=== PATIENT | female | born 1995 ===

== ENCOUNTER 2016-11-06 21:38 | Emergency (ER) | payer OTHER ==
[2016-11-06 21:38] VITALS: BMI 18.3
[2016-11-06 21:50] VITALS: PULSE 84
--- NOTE | 2016-11-06 22:11 | C.PDOC ---
History Of Present Illness Pt drank 4 margaritas and beer and now feels nauseated and has some abdominal pain. No f/c. tolerating po. Dull aching discomfort Time Seen by Provider: 11/06/16 22:11 Chief Complaint (Nursing): GI Problem History Per: Patient History/Exam Limitations: no limitations Onset/Duration Of Symptoms: Hrs Current Symptoms Are (Timing): Still Present Context: Food, Other (alcohol) Severity: Moderate Pain Scale Rating Of: 4 Location Of Pain/Discomfort: Epigastric Radiation Of Pain To:: None Quality Of Discomfort: Dull, Cramping Associated Symptoms: Nausea, Vomiting. denies: Fever, Chills Exacerbating Factors: Food Alleviating Factors: None Last Bowel Movement: Today Recent travel outside of the [place]: No Additional History Per: Patient Abnormal Vaginal Bleeding: No Past Medical History Reviewed: Historical Data, Nursing Documentation, Vital Signs Vital Signs: Last Vital Signs Temp 98.1 F 11/06/16 23:27 Pulse 84 11/06/16 23:27 Resp 18 11/06/16 23:27 BP 100/65 11/06/16 23:27 Pulse Ox 100 11/06/16 23:27 - Medical History PMH: Denies: Chronic Kidney Disease Family History: States: No Known Family Hx - Social History Hx Tobacco Use: No Hx Alcohol Use: Yes Hx Substance Use: No - Immunization History Hx Tetanus Toxoid Vaccination: No Hx Influenza Vaccination: No Hx Pneumococcal Vaccination: No Review Of Systems Constitutional: Negative for: Fever, Chills Eyes: Negative for: Redness ENT: Negative for: Throat Pain Cardiovascular: Negative for: Chest Pain, Palpitations Respiratory: Negative for: Shortness of Breath Gastrointestinal: Positive for: Abdominal Pain. Negative for: Nausea, Vomiting Genitourinary: Negative for: Dysuria Musculoskeletal: Negative for: Back Pain Skin: Negative for: Rash, Lesions, Jaundice, Bruising Neurological: Negative for: Weakness Psych: Negative for: Anxiety Physical Exam - Physical Exam Appears: Non-toxic Skin: Warm Oral Mucosa: Moist Neck: Decreased ROM, Supple Chest: Symmetrical Cardiovascular: Rhythm Regular Respiratory: No Rales, No Rhonchi, No Wheezing Gastrointestinal/Abdominal: Soft, Tenderness (mild, mid epigastric), No Distention, No Guarding, No Rebound Back: No CVA Tenderness Extremity: Normal ROM, No Pedal Edema Extremity: Bilateral: Atraumatic, Normal Color And Temperature Neurological/Psych: Oriented x3, Normal Speech, Normal Cognition Gait: Steady ED Course And Treatment - Laboratory Results Result Diagrams: 11/06/16 22:35 11/06/16 22:35 O2 Sat by Pulse Oximetry: 99 Pulse Ox Interpretation: Normal Reevaluation Time: 23:41 Reassessment Condition: Improved Medical Decision Making Medical Decision Making: Upon provider reevaluation patient is feeling better, is medically stable, and requires no further treatment in the ED at this time. Patient will be discharged home with Rx for zofran . Counseling was provided and all questions were answered regarding diagnosis and need for follow up with the referred clinic. There is agreement to discharge plan. Return if symptoms persist or worsen. Disposition Counseled Patient/Family Regarding: Studies Performed, Diagnosis, Need For Followup - Disposition Referrals: Stephen Hinton MD [Medical Doctor] - Disposition: HOME/ ROUTINE Disposition Time: 22:11 Condition: FAIR Additional Instructions: Please increase fluid intake and take some pepcid daily for a few days Prescriptions: Ondansetron ODT [Zofran ODT] 1 odt PO BID PRN #6 odt PRN Reason: Nausea/Vomiting Instructions: Gastritis (DC), Alcohol Intoxication (DC) - Clinical Impression Clinical Impression: Gastritis, Alcohol intoxication
[2016-11-06] MEDS ORDERED: Sodium Chloride 0.9% 1,000 ML IV ONE (22:16)
[2016-11-06] MEDS ORDERED: Sodium Chloride 0.9% 1,000 ML ONE (22:32)
[2016-11-06 22:39] LABS: BASO # 0.1 K/uL (0.0-0.2); BASO % 1.1 % (0.0-2.0); EOS # 0.1 K/uL (0.0-0.7); EOS % 1.6 % (0.0-4.0); HEMATOCRIT 40.4 % (34.0-47.0); LYMPH # 1.3 K/uL (1.0-4.3); LYMPH % 26.6 % (20.0-40.0); MEAN CELL VOLUME 86.1 fL (81.0-99.0); MEAN CORPUSCULAR HEMOGLOBIN 28.5 pg (27.0-31.0); MEAN CORPUSCULAR HGB CONC 33.1 g/dL (33.0-37.0); MEAN PLATELET VOLUME 8.6 fL (7.2-11.7); MONO # 0.3 K/uL (0.0-0.8); MONO % 5.5 % (0.0-10.0); RED CELL DISTRIBUTION WIDTH 13.1 % (11.5-14.5); WHITE BLOOD COUNT 4.8 K/uL (4.8-10.8)
[2016-11-06 22:46] LABS: CHLORIDE 106 mmol/L (98-107)
[2016-11-06 22:47] LABS: POTASSIUM 3.6 mmol/L (3.6-5.2); SODIUM 140 mmol/L (132-148)
[2016-11-06 22:49] LABS: ALB/GLOB RATIO 1.7 (1.0-2.1); ALKALINE PHOSPHATASE 48 U/L (38-126); ALT/SGPT 29 U/L (9-52); AST/SGOT 19 U/L (14-36); BILIRUBIN,TOTAL 0.6 mg/dL (0.2-1.3); BLOOD UREA NITROGEN 8 mg/dL (7-17); CARBON DIOXIDE 24 mmol/L (22-30); GFR AFRICAN-AMERICAN > 60; GLUCOSE,RANDOM 84 mg/dL (65-105); TOTAL PROTEIN 7.2 g/dL (6.3-8.3)
[2016-11-06 22:50] LABS: ALCOHOL SERUM 50 mg/dl (0-10); CALCIUM 8.5 mg/dl (8.6-10.4)
[2016-11-06 22:53] LABS: RBC URINE 19 /hpf (0-3); URINE BACTERIA OCC (<OCC); URINE BILIRUBIN NEGATIVE (NEGATIVE); URINE BLOOD 3+ (NEGATIVE); URINE COLOR Yellow (YELLOW); URINE GLUCOSE (UA) NORMAL (Normal); URINE KETONE NEGATIVE (NEGATIVE); URINE LEUKOCYTE ESTERASE NEG Leu/uL (Negative); URINE PROTEIN 1+ mg/dL (NEGATIVE); URINE UROBILINOGEN NORMAL mg/dL (0.2-1.0); WBC URINE 2 /hpf (0-5)
[2016-11-06 23:29] VITALS: BP 100/65; RESP 18; TEMP 98.1
[2016-11-06 23:46] VITALS: O2SAT 99
== END 2016-11-06 23:54 | disposition home or self-care (01) ==
LOC: C.ER 21:38
DX: K29.70 Gastritis, unspecified, without bleeding (principal); F10.120 Alcohol abuse with intoxication, uncomplicated; Y90.2 Blood alcohol level of 40-59 mg/100 ml
CPT/HCPCS: 80053; 80320; 81001; 83690; 84703; 85025; 96361; 96374; 96375; 99285; J2405; J7040

== ENCOUNTER 2017-03-13 21:12 | Emergency (ER) | payer OTHER ==
[2017-03-13 21:12] VITALS: BMI 18.3
[2017-03-13 21:27] VITALS: O2SAT 100
[2017-03-13] MEDS ORDERED: Sodium Chloride 0.9% 1,000 ML IV ONE (21:43)
--- NOTE | 2017-03-13 21:43 | C.PDOC ---
History Of Present Illness Pt is a 21 yo with no signif PMH who presents with c/o nausea/vomiting beginning approx 24 hrs ago shortly after eating seafood.Denies any fever,pos diarrea times 3.No burning sensation to mouthNo other members of household are ill though they all ate at the same restaurantPt is able to keep down some fluids Time Seen by Provider: 03/13/17 21:35 Chief Complaint (Nursing): Abdominal Pain Past Medical History Vital Signs: Last Vital Signs Temp 97.8 F 03/13/17 22:53 Pulse 74 03/13/17 22:53 Resp 18 03/13/17 22:53 BP 127/83 03/13/17 22:53 Pulse Ox 100 03/13/17 22:53 - Medical History PMH: No Chronic Diseases Denies: Chronic Kidney Disease Family History: States: Unknown Family Hx - Social History Hx Tobacco Use: No Hx Alcohol Use: No Hx Substance Use: No - Immunization History Hx Tetanus Toxoid Vaccination: No Hx Influenza Vaccination: Yes (2016) Hx Pneumococcal Vaccination: No Review Of Systems Except As Marked, All Systems Reviewed And Found Negative. Constitutional: Negative for: Fever, Chills Cardiovascular: Negative for: Chest Pain Respiratory: Negative for: Cough, Shortness of Breath Gastrointestinal: Positive for: Nausea, Vomiting, Abdominal Pain, Diarrhea. Negative for: Constipation Genitourinary: Negative for: Dysuria, Frequency Physical Exam - Physical Exam Appears: Well Skin: Normal Color Head: Atraumatic Nose: Normal Oral Mucosa: Moist Tongue: Normal Appearing Neck: Normal Lymphatic: Normal Exam Chest: Symmetrical Cardiovascular: Rhythm Regular Respiratory: Normal Breath Sounds Gastrointestinal/Abdominal: Normal Exam, Bowel Sounds, Soft, No Tenderness, No Distention Back: Normal Inspection ED Course And Treatment - Laboratory Results Result Diagrams: 03/13/17 21:46 03/13/17 21:46 Lab Interpretation: Normal O2 Sat by Pulse Oximetry: 100 Medical Decision Making Medical Decision Making: Pt feels much better after IV hydration,antiemetics Disposition - Disposition Referrals: [facility] [Outside] Disposition: HOME/ ROUTINE Disposition Time: 22:11 Condition: GOOD Additional Instructions: liquids only for next 24 hrs Prescriptions: Atropine/Diphenoxylate [Lonox 0.025 MG-2.5 MG] 1 tab PO Q4H PRN #10 tab PRN Reason: Diarrhea Ondansetron ODT [Zofran ODT] 4 mg PO Q6 PRN #6 odt PRN Reason: vomiting Forms: [employer] (Bulgarian), General Discharge Instructions - Clinical Impression Clinical Impression: Gastroenteritis and colitis, viral
[2017-03-13 21:51] LABS: BASO % 0.5 % (0.0-2.0); EOS # 0.1 K/uL (0.0-0.7); EOS % 0.8 % (0.0-4.0); LYMPH # 2.2 K/uL (1.0-4.3); MEAN CELL VOLUME 85.6 fL (81.0-99.0); MEAN CORPUSCULAR HEMOGLOBIN 29.2 pg (27.0-31.0); MEAN CORPUSCULAR HGB CONC 34.1 g/dL (33.0-37.0); MEAN PLATELET VOLUME 8.7 fL (7.2-11.7); MONO # 0.5 K/uL (0.0-0.8); MONO % 5.8 % (0.0-10.0); NRBC % 0.2 % (0.0-2.0); RED CELL DISTRIBUTION WIDTH 12.5 % (11.5-14.5); WHITE BLOOD COUNT 8.6 K/uL (4.8-10.8)
[2017-03-13] MEDS ORDERED: Sodium Chloride 0.9% 1,000 ML ONE (21:51)
[2017-03-13 21:59] LABS: RBC URINE 2 /hpf (0-3); URINE BILIRUBIN NEGATIVE (NEGATIVE); URINE BLOOD NEGATIVE (NEGATIVE); URINE COLOR Yellow (YELLOW); URINE GLUCOSE (UA) NORMAL (Normal); URINE KETONE NEGATIVE (NEGATIVE); URINE LEUKOCYTE ESTERASE NEG Leu/uL (Negative); URINE PROTEIN NEGATIVE (NEGATIVE); URINE UROBILINOGEN NORMAL mg/dL (0.2-1.0); WBC URINE 1 /hpf (0-5)
[2017-03-13 22:00] LABS: CHLORIDE 102 mmol/L (98-107)
[2017-03-13 22:01] LABS: POTASSIUM 3.8 mmol/L (3.6-5.2); SODIUM 138 mmol/L (132-148)
[2017-03-13 22:03] LABS: ALB/GLOB RATIO 1.3 (1.0-2.1); ALKALINE PHOSPHATASE 49 U/L (38-126); AST/SGOT 25 U/L (14-36); BILIRUBIN,TOTAL 0.5 mg/dL (0.2-1.3); BLOOD UREA NITROGEN 13 mg/dL (7-17); CARBON DIOXIDE 23 mmol/L (22-30); GFR AFRICAN-AMERICAN > 60; TOTAL PROTEIN 7.9 g/dL (6.3-8.3)
[2017-03-13 22:04] LABS: ALT/SGPT 41 U/L (9-52); CALCIUM 9.3 mg/dl (8.6-10.4); GLUCOSE,RANDOM 88 mg/dL (65-105)
[2017-03-13 22:54] VITALS: BP 127/83; PULSE 74; RESP 18; TEMP 97.8
== END 2017-03-13 22:54 | disposition home or self-care (01) ==
LOC: C.ER 21:12
DX: A08.4 Viral intestinal infection, unspecified (principal)
CPT/HCPCS: 80053; 81001; 83690; 84703; 85025; 96374; 96375; 99285; J1885; J2405; J7040

== ENCOUNTER 2017-05-10 21:07 | Emergency (ER) | payer OTHER ==
[2017-05-10 21:07] VITALS: BMI 18.3
[2017-05-10] MEDS ORDERED: Sodium Chloride 0.9% 1,000 ML IV ONE (22:55)
[2017-05-10] MEDS ORDERED: Sodium Chloride 0.9% 1,000 ML ONE (23:11)
[2017-05-10 23:12] LABS: BASO % 0.7 % (0.0-2.0); EOS # 0.1 K/uL (0.0-0.7); EOS % 1.2 % (0.0-4.0); HEMATOCRIT 40.8 % (34.0-47.0); LYMPH # 1.7 K/uL (1.0-4.3); LYMPH % 28.1 % (20.0-40.0); MEAN CELL VOLUME 84.6 fL (81.0-99.0); MEAN CORPUSCULAR HEMOGLOBIN 30.1 pg (27.0-31.0); MEAN CORPUSCULAR HGB CONC 35.6 g/dL (33.0-37.0); MONO # 0.3 K/uL (0.0-0.8); MONO % 5.8 % (0.0-10.0); RED CELL DISTRIBUTION WIDTH 12.4 % (11.5-14.5)
[2017-05-10 23:15] LABS: RBC URINE < 1 /hpf (0-3); URINE BACTERIA RARE (<OCC); URINE BILIRUBIN NEGATIVE (NEGATIVE); URINE BLOOD 2+ (NEGATIVE); URINE COLOR Colorless (YELLOW); URINE GLUCOSE (UA) NORMAL (Normal); URINE KETONE NEGATIVE (NEGATIVE); URINE LEUKOCYTE ESTERASE NEG Leu/uL (Negative); URINE PROTEIN NEGATIVE (NEGATIVE); URINE UROBILINOGEN NORMAL mg/dL (0.2-1.0); WBC URINE < 1 /hpf (0-5)
--- NOTE | 2017-05-10 23:19 | C.PDOC ---
History Of Present Illness Patient is a 22 y/o female who presents to the ED with complaints of dizziness, nausea, and palpitations causing SOB x2 days. she feels her heart fluttering but denies any association with exertion or change in position. Patient admits symptoms are intermittent and are not associated with any other symptoms. Denies CP, abdominal pain, fever/chills, or feeling lightheaded. Patient reports last menstrual period was 05/05 and normal. Denies using any control since she is infertile due to tubes closed. No other physical complaints at this time. Time Seen by Provider: 05/10/17 22:41 Chief Complaint (Nursing): Palpitations History Per: Patient History/Exam Limitations: no limitations Onset/Duration Of Symptoms: Days (2 days), Intermittent Episodes Current Symptoms Are (Timing): Still Present Recent travel outside of the [place]: No Past Medical History Reviewed: Historical Data, Nursing Documentation, Vital Signs Vital Signs: Last Vital Signs Temp 98.2 F 05/10/17 21:18 Pulse 76 05/10/17 21:18 Resp 20 05/10/17 21:18 BP 141/78 05/10/17 21:18 Pulse Ox 98 05/10/17 23:22 - Medical History PMH: No Chronic Diseases Denies: Chronic Kidney Disease Surgical History: No Surg Hx Family History: States: Unknown Family Hx - Social History Hx Tobacco Use: No Hx Alcohol Use: No Hx Substance Use: No - Immunization History Hx Tetanus Toxoid Vaccination: No Hx Influenza Vaccination: Yes (2017) Hx Pneumococcal Vaccination: No Review Of Systems Constitutional: Negative for: Fever, Chills Cardiovascular: Positive for: Palpitations Respiratory: Positive for: Shortness of Breath Gastrointestinal: Positive for: Nausea. Negative for: Abdominal Pain Neurological: Positive for: Dizziness Physical Exam - Physical Exam Appears: Well, Non-toxic, No Acute Distress Skin: Normal Color, Warm, Dry Head: Atraumatic, Normacephalic Oral Mucosa: Moist Chest: Symmetrical Cardiovascular: Rhythm Regular, No Murmur Respiratory: Normal Breath Sounds, No Rales, No Rhonchi, No Wheezing Gastrointestinal/Abdominal: Soft, No Tenderness Neurological/Psych: Oriented x3, Normal Speech, Normal Cognition ED Course And Treatment - Laboratory Results Result Diagrams: 05/10/17 23:09 05/10/17 23:09 Lab Interpretation: No Acute Changes ECG: Interpreted By Me ECG Rhythm: Sinus Rhythm ECG Interpretation: No Acute Changes O2 Sat by Pulse Oximetry: 98 (room air) Pulse Ox Interpretation: Normal Progress Note: EKG and blood work ordered. Zofran and IV fluids administered. Reevaluation Time: 23:49 Reassessment Condition: Improved (Patient remains comfortable. No symptoms at this time.) Disposition Counseled Patient/Family Regarding: Studies Performed, Diagnosis, Need For Followup - Disposition Referrals: Stephen Hinton MD [Medical Doctor] - Disposition: HOME/ ROUTINE Disposition Time: 23:50 Condition: STABLE Additional Instructions: Encourage plenty of fluids and rest. Instructions: Dizziness (ED), Palpitations (ED) Forms: [employer] (Kyrgyz) - Clinical Impression Clinical Impression: Palpitations, Dizziness - Scribe Statement The provider has reviewed the documentation as recorded by the Scribe Janeth Shell All medical record entries made by the Scribe were at my direction and personally dictated by me. I have reviewed the chart and agree that the record accurately reflects my personal performance of the history, physical exam, medical decision making, and the department course for this patient. I have also personally directed, reviewed, and agree with the discharge instructions and disposition.
[2017-05-10 23:25] LABS: ALB/GLOB RATIO 1.6 (1.0-2.1); ALKALINE PHOSPHATASE 46 U/L (38-126); ALT/SGPT 24 U/L (9-52); AST/SGOT 21 U/L (14-36); BILIRUBIN,TOTAL 0.6 mg/dL (0.2-1.3); BLOOD UREA NITROGEN 6 mg/dL (7-17); CALCIUM 9.2 mg/dl (8.6-10.4); CARBON DIOXIDE 21 mmol/L (22-30); CHLORIDE 105 mmol/L (98-107); GFR AFRICAN-AMERICAN > 60; GLUCOSE,RANDOM 113 mg/dL (65-105); POTASSIUM 3.3 mmol/L (3.6-5.2); SODIUM 137 mmol/L (132-148); TOTAL PROTEIN 7.1 g/dL (6.3-8.3)
[2017-05-11 00:11] VITALS: BP 118/70; PULSE 64; RESP 18; TEMP 98.6; O2SAT 100
== END 2017-05-11 00:05 | disposition home or self-care (01) ==
LOC: C.ER 21:07
DX: R42 Dizziness and giddiness (principal); R00.2 Palpitations
CPT/HCPCS: 80053; 81001; 84703; 85025; 85378; 96361; 96374; 99285; J2405; J7040

== ENCOUNTER 2017-07-24 19:12 | Emergency (ER) | payer OTHER ==
[2017-07-24 19:12] VITALS: BMI 18.3
[2017-07-24 19:36] VITALS: RESP 16
--- NOTE | 2017-07-24 20:00 | C.PDOC ---
History Of Present Illness 22 y/o female presents to the ER complaining of upper chest discomfort which has been present for the past 12 hours. Patient reports that the pain is digitally and positionally reproducible. Patient denies any other complaints at this time. Time Seen by Provider: 07/24/17 19:50 Chief Complaint (Nursing): Chest Pain History Per: Patient History/Exam Limitations: no limitations Onset/Duration Of Symptoms: Hrs Current Symptoms Are (Timing): Still Present Severity: Moderate Past Medical History Reviewed: Historical Data, Nursing Documentation, Vital Signs Vital Signs: Last Vital Signs Temp 98 F 07/24/17 20:08 Pulse 78 07/24/17 20:08 Resp 16 07/24/17 20:08 BP 126/86 07/24/17 20:08 Pulse Ox 100 07/24/17 21:41 - Medical History PMH: Denies: Chronic Kidney Disease Other Surgeries: Hx of surgeries Family History: States: No Known Family Hx - Social History Hx Tobacco Use: No Hx Alcohol Use: No Hx Substance Use: No - Immunization History Hx Tetanus Toxoid Vaccination: No Hx Influenza Vaccination: Yes Hx Pneumococcal Vaccination: Yes Review Of Systems Except As Marked, All Systems Reviewed And Found Negative. Constitutional: Negative for: Fever, Chills Cardiovascular: Positive for: Chest Pain Physical Exam - Physical Exam Appears: Non-toxic, Other (anxious) Skin: Normal Color, Warm Head: Atraumatic, Normacephalic Eye(s): bilateral: Normal Inspection Nose: Normal Oral Mucosa: Moist Neck: Supple Chest: Symmetrical, Tenderness (digitally and positionally reproducible bilateral parasternal tenderness), Other (no rash, chaperoned with nurse Joellen ) Cardiovascular: Rhythm Regular Respiratory: Normal Breath Sounds, No Accessory Muscle Use, No Rales, No Rhonchi , No Wheezing Extremity: Normal ROM Neurological/Psych: Oriented x3, Normal Speech, Normal Motor, Normal Sensation ED Course And Treatment ECG: Interpreted By Me ECG Rhythm: Sinus Rhythm ECG Interpretation: Normal Rate From EC O2 Sat by Pulse Oximetry: 100 (RA) Pulse Ox Interpretation: Normal Medical Decision Making Medical Decision Making: digitally and positionally reproducable pain @ b/l parasternal upper areas, no rash, clear lungs, normal EKG costochondritis ice/NSAIDS given Disposition Doctor Will See Patient In The: Office Counseled Patient/Family Regarding: Studies Performed, Diagnosis - Disposition Referrals: Stephen Hinton MD [Medical Doctor] - Disposition: HOME/ ROUTINE Disposition Time: 20:00 Condition: GOOD Additional Instructions: bolsa de hielo 1/2 hora por hora, nada caliente NO roselia caliente- se inflamma mas! Ibuprofeno 400-600 mg cada 6 horas komal necessario No levanta nada pesada por 1 semana sigue con enamorado medico komal necessario. Instructions: Costochondritis Forms: [employer] (Vietnamese) Print Language: [place]IZ[place] - Clinical Impression Clinical Impression: Chest discomfort - Scribe Statement The provider has reviewed the documentation as recorded by the Scribe Cathi Nieves Provider Attestation: All medical record entries made by the Scribe were at my direction and personally dictated by me. I have reviewed the chart and agree that the record accurately reflects my personal performance of the history, physical exam, medical decision making, and the department course for this patient. I have also personally directed, reviewed, and agree with the discharge instructions and disposition.
[2017-07-24 20:08] VITALS: BP 126/86; PULSE 78; TEMP 98
[2017-07-24 21:01] VITALS: O2SAT 100
--- NOTE | 2017-07-25 21:20 | CARD ---
APPROVED REPORT EKG Measurement Heart [id number] <Conclusion> Normal sinus rhythm Incomplete right bundle branch block Borderline ECG
== END 2017-07-24 20:08 | disposition home or self-care (01) ==
LOC: C.ER 19:12
DX: R07.9 Chest pain, unspecified (principal)